=== PATIENT | male | born 1955 | race Caucasian/White ===

== ENCOUNTER 2021-09-25 15:32 | Inpatient (IN) ==
[2021-09-25] MEDS ORDERED: VANCOMYCIN CONSULT ACTIVE PRN (15:52)
[2021-09-25] MEDS ORDERED: VANCOMYCIN HCL 2,500 MG in SODIUM CHLORIDE 0.9% 500 ML IV ONE (15:52)
--- NOTE | 2021-09-25 15:59 | Emergency Department Note ---
History of Present Illness General Chief complaint: Referred by Doctor Stated complaint: INFECTED BOIL ON R LEG Time Seen by Provider: 09/25/21 15:44 Source: patient History of Present Illness Provider complaint: Right thigh pain Onset (ago): week(s) Location: lower extremity and right Radiation: non-radiation Pain Consistency: + constant Maximum Pain Intensity: 8 Quality: + other (Soreness) Relieved By: + none Associated symptoms: + fever/chills and + rash; no chest pain, no cough, no headaches, no nausea/vomiting or no shortness of breath This is a 66-year-old male sent here for admission by his doctor for infection to his right leg. The patient states that approximately 10 days ago the patient developed an abscess to his right inner thigh. He stated that later in the week he was able to pop it open and drain the pus from it. He stated that it got better but then seem to get worse again and so he saw his doctor yesterday who performed I&D in the office with packing and discharged him on Levaquin. He has had 2 doses of Levaquin including 1 dose at 7 AM this morning. He has been taking tramadol for pain. He states that when he went to follow-up with his doctor today the redness seem to be worsening and so he was sent here for admission and IV antibiotics. He complains of pain to the thigh. He describes it as a soreness. It is constant. He rates it an 8 out of 10 in severity. No alleviating factors. He did have a low-grade temperature at the doctor's office of 99.9 and had an episode of chills yesterday. He denies any cough or cold sym ptoms, vomiting, chest pain, shortness of breath, abdominal pain, diarrhea or urinary symptoms. He states that he takes no medications other than the Levaquin and has had no diagnosed medical problems. He has had no prior history of MRSA. Home Medications Medication Instructions Recorded Confirmed Type diphenhydramine 25 2 tab PO HS PRN 09/25/21 09/25/21 History mg-acetaminophen 500 mg tablet (Tylenol PM Extra Strength) levofloxacin 500 mg tablet 500 mg PO DAILY 09/25/21 09/25/21 History tramadol 50 mg tablet 50 mg PO Q8 PRN 09/25/21 09/25/21 History Allergies Allergy/AdvReac Type Severity Reaction Status Date / Time No Known Allergies Allergy Unverified 09/25/21 16:48 Past Med/Surg History Medical History No pertinent past medical history Social History Smoking Status: Former smoker Second Hand Exposure: No; Hx Substance Use: No Preferred Language: Bangladeshi Communication Ability: Effective 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 and A total of 10 systems reviewed and were otherwise negative Physical Exam Vital Signs Vital Signs - 24 hr 09/25/21 15:36 09/25/21 16:45 Temperature 37 C 37.5 C Temperature Source Temporal Artery Scan Oral Pulse Rate 93 H Pulse Rate [Right Radial] 79 Respiratory Rate 16 18 Respiratory Effort / Characteristics Non-Labored Respiratory Depth Normal Blood Pressure [Right Arm] 126/74 Blood Pressure Mean [Right Arm] 91 Blood Pressure Position [Right Arm] Lying Pulse Oximetry 93 94 Oxygen Delivery Method Room Air Room Air Sepsis Recent Fever Within 48 Hours No Sepsis New/Unexplained Change in Mental Status No Sepsis Action Taken by Nursing No Action Required Constitutional: Vital signs reviewed. Eyes: Pupils are equal round reactive to light. Conjunctiva are noninjected. ENT: Pharynx is clear without erythema or exudate. Mucous membranes are moist. Neck supple without meningeal signs. Respiratory: Clear to auscultation bilaterally. Breath sounds are equal bilaterally. Cardiovascular: Regular rate and rhythm. No rubs or gallops. GI: Soft, nondistended and nontender. Bowel sounds are present. Musculoskeletal: Large james sized abscess to the right inner thigh with induration. Small incision noted with milky white purulence. There is no packing visible. Erythema extending past a skin marker line toward the knee. No tenderness to the scrotum or perineum. No crepitus. Integumentary: No cyanosis. or jaundice. Neurological: The patient is awake and alert. No focal deficits. Psychiatric: Normal affect. Not anxious appearing. Course Administered Medications Discontinued Medications Vancomycin HCl 2,500 mg/ (Sodium Chloride) 550 mls @ 200 mls/hr IV NOW ONE Stop: 09/25/21 18:36 Last Admin: 09/25/21 16:44 Dose: 200 mls/hr Documented by: [id number] Piperacillin Sod/Tazobactam Sod (Zosyn) 4.5 gm in 120 mls @ 240 mls/hr IV NOW ONE Stop: 09/25/21 18:44 Last Infusion: 09/25/21 19:26 Dose: 0 mls/hr Documented by: [id number] Admin: 09/25/21 18:38 Dose: 240 mls/hr Documented by: [id number] Medical Decision Making Differential Diagnosis Abscess, cellulitis, outpatient treatment failure, MRSA, myositis, Froylan's gangrene Medical Records Attestation: I reviewed the patient's medical records. I did perform a limited focused review of portions of the patient's old chart on the electronic medical record. The patient has had no prior visits to this hospital. Home Medications Current Medication List: was personally reviewed by me Laboratory Data Attestation: I reviewed the patient's lab results. Result diagrams: 09/25/21 16:01 09/25/21 16:01 Lab Results 09/25/21 09/25/21 09/25/21 Range/Units 16:00 16:01 16:01 WBC 11.78 H (4.8-10.8) K/uL RBC 4.48 L (4.7-6.1) M/uL Hgb 14.6 (14.0-18.0) g/dL Hct 42.5 (42-52) % MCV 94.9 (80-100) fL MCH 32.6 (25-34) pg MCHC 34.4 (32-36) g/dL RDW Std Deviation 47.4 H (36.4-46.3) fL RDW Coeff of Clare 13.7 (11.5-14.5) % Plt Count 194 (130-400) K/uL MPV 9.3 (7.4-10.4) fL Immature Gran % (Auto) 0.3 % Neut % (Auto) 79.7 % Lymph % (Auto) 10.8 % Russell % (Auto) 8.4 % Eos % (Auto) 0.6 % Baso % (Auto) 0.2 % Neut # (Auto) 9.39 H (1.4-6.5) K/uL Lymph # (Auto) 1.27 (1.2-3.4) K/uL Russell # (Auto) 0.99 H (0.11-0.59) K/uL Eos # (Auto) 0.07 (0-0.5) K/uL Baso # (Auto) 0.02 (0-0.2) K/uL Immature Gran # (Auto) 0.04 H (0.00-0.02) K/uL Sodium 134 L (136-145) mmol/L Potassium 3.8 (3.5-5.1) mmol/L Chloride 100 (98-107) mmol/L Carbon Dioxide 25 (21-32) mmol/L Anion Gap 9 (3-11) BUN 18 (6-23) mg/dl Creatinine 1.03 (0.6-1.4) mg/dl Est Cr Clr Drug Dosing 84.2 ml/min Est GFR ( Amer) 86.7 ml/min Est GFR (Non-Af Amer) 74.8 ml/min BUN/Creatinine Ratio 17.5 (10-20) Glucose 102 H (70-99(Fasting)) mg/dl Calcium 9.3 (8.5-10.1) mg/dl Total Bilirubin 0.8 (0.2-1.0) mg/dl AST 12 L (13-39) U/L ALT 14 (7-52) U/L Alkaline Phosphatase 53 (34-104) U/L Total Protein 7.0 (6.0-8.3) gm/dl Albumin 3.9 (3.4-5.0) gm/dl Globulin 3.1 (2.5-4.0) gm/dl Albumin/Globulin Ratio 1.3 (0.9-2) SARS-CoV-2, RNA, NAAT NEGATIVE (NEGATIVE) Imaging Data Radiologist's Impression: Vascular Ultrasound 09/25/21 15:52 US extremity non-vascular ltd HISTORY: 66 years-old Male right thigh eval for abscess patient presents with soft tissue swelling of the right thigh COMPARISON: None TECHNIQUE: Multiple real-time sonographic images of the right thigh soft tissues were obtained assessing grayscale appearance and color flow FINDINGS: Subcutaneous edema with increased echogenicity of the subcutaneous fat. Within the superficial posterior subcutaneous tissues there is a 1.1 x 0.6 x 0.7 cm hypoechoic focus containing central echogenic foci which may represent air v ersus packing material. Within the more anterior subcutaneous tissues there is an irregular hypoechoic subcutaneous focus measuring 1.4 x 0.4 x 1.6 cm. IMPRESSION: Cellulitis with two tiny collections within the subcutaneous tissues of the thigh as above measuring up to 1.4 cm suggestive of phlegmon/developing abscesses. No intramuscular collections are identified. ACT 112: Negative or not required by law. The above report was generated using voice recognition software. It may contain grammatical, syntax or spelling errors. Electronically signed by: Jimmy Thakkar M.D. 09/25/2021 4:55 PM MDM Narrative I did evaluate the patient as noted above. He is presenting with worsening cellulitis and abscess to the right thigh. He was treated with Levaquin by his primary care physician. IV access was established. Blood cultures were obtained. I did treat him with IV vancomycin. I did order a urine analysis. I did order and review the patient's blood work as noted in the electronic medical record. His white blood cell count is elevated at 11.7. He is not anemic. CMP is unremarkable other than a sodium of 134 and AST of 12. I did order an ultr asound of the left leg s. I did review the images myself as well as the radiology report as described above. He has cellulitis as well as 2 small abscesses. There appears to be packing material within one of the abscesses. I did discuss the test results with the patient. He will be hospitalized for further care and evaluation. I did discuss the case with the hospitalist service and the case resource manager. They will consult general surgery. Impression & Plan Cellulitis and abscess of right lower extremity Discharge Plan Visit Data Chief Complaint: Referred by Doctor Stated Complaint: INFECTED BOIL ON R LEG ED Provider: Rodolfo Moore Discharge Problem: Cellulitis and abscess of right lower extremity Patient Disposition: Admitted As Inpatient Discharge Instructions Interventions: ED Discharge Assessment Last Done: 09/25/21 19:43
[2021-09-25 16:22] LABS: Basophils # (auto) 0.02 K/uL (0-0.2); Basophils % (auto) 0.2 %; Eosinophils # (auto) 0.07 K/uL (0-0.5); Eosinophils % (auto) 0.6 %; Hematocrit (blood only) 42.5 % (42-52); Hemoglobin 14.6 g/dL (14.0-18.0); Immature Granulocytes # (auto) 0.04 K/uL (0.00-0.02); Immature Granulocytes % (auto) 0.3 %; Lymphocytes # (auto) 1.27 K/uL (1.2-3.4); Lymphocytes % (auto) 10.8 %; Mean Corpuscular Hemoglobin 32.6 pg (25-34); Mean Corpuscular Hgb Conc 34.4 g/dL (32-36); Mean Corpuscular Volume 94.9 fL (80-100); Mean Platelet Volume 9.3 fL (7.4-10.4); Monocytes # (auto) 0.99 K/uL (0.11-0.59); Monocytes % (auto) 8.4 %; Neutrophils # (auto) 9.39 K/uL (1.4-6.5); Neutrophils % (auto) 79.7 %; Platelet Count 194 K/uL (130-400); RDW Coefficient of Variation 13.7 % (11.5-14.5); RDW Standard Deviation 47.4 fL (36.4-46.3); Red Blood Count 4.48 M/uL (4.7-6.1); White Blood Count 11.78 K/uL (4.8-10.8)
[2021-09-25 16:37] LABS: Albumin Globulin Ratio 1.3 (0.9-2); Albumin Level 3.9 gm/dl (3.4-5.0); BUN Creatinine Ratio 17.5 (10-20); Bilirubin,Total 0.8 mg/dl (0.2-1.0); Calcium 9.3 mg/dl (8.5-10.1); Creatinine Clr Calc Pharmacy 84.2 ml/min; Est GFR (African American) 86.7 ml/min; Est GFR (Non-African American) 74.8 ml/min; Globulin 3.1 gm/dl (2.5-4.0); Potassium 3.8 mmol/L (3.5-5.1)
--- NOTE | 2021-09-25 16:56 | Ultrasound Report ---
US extremity non-vascular ltd HISTORY: 66 years-old Male right thigh eval for abscess patient presents with soft tissue swelling o f the right thigh COMPARISON: None TECHNIQUE: Multiple real-time sonographic images of the right thigh soft tissues were obtained assess ing grayscale appearance and color flow FINDINGS: Subcutaneous edema with increased echogenicity of the subcutaneous fat. Within the superficial wheel grinder ior subcutaneous tissues there is a 1.1 x 0.6 x 0.7 cm hypoechoic focus containing central echogenic foci which may represent air versus packing material. Within the more anterior subcutaneous tissues t here is an irregular hypoechoic subcutaneous focus measuring 1.4 x 0.4 x 1.6 cm. IMPRESSION: Cellulitis with two tiny collections within the subcutaneous tissues of the thigh as abov e measuring up to 1.4 cm suggestive of phlegmon/developing abscesses. No intramuscular collections ar e identified. ACT 112: Negative or not required by law. The above report was generated using voice recognition software. It may contain grammatical, syntax o r spelling errors. Electronically signed by: Jimmy Thakkar M.D. 09/25/2021 4:55 PM
[2021-09-25] MEDS ORDERED: ACETAMINOPHEN 325 MG TAB PO PRN (17:57)
[2021-09-25] MEDS ORDERED: PIPERACILLIN/TAZOBACTAM 4.5 GM in DEXTROSE 5% 100 ML IV ONE (17:59)
[2021-09-25] MEDS ORDERED: PIPERACILL/TAZOBAC CONSULT ACTIVE PRN (17:59)
--- NOTE | 2021-09-25 18:00 | History & Physical Report ---
Date of Service September 25, 2021 Assessment & Plan (1) Soft tissue abscess: (2) Cellulitis: Plan: 66-year-old male without significant past medical history admitted for cellulitis and developing abscess in the right upper thigh/groin. Cellulitis/abscess: Presents with a total of 10 days of erythema and tenderness in the right upper thigh/groin area. Evaluated by PCP office yesterday and had packing inserted into the wound after expressing purulent material. He was also placed on Levaquin at that time. In the ER due to continued worsening of redness past the line demarcated by PCP office yesterday. Right upper thigh ultrasound reveals 2 small developing abscesses as well as cellulitis. No evidence of necrotizing fasciitis. Blood cultures were collected and patient was ordered vancomycin. We will further extend coverage and add Zosyn. Wound culture was also collected. Patient already had 1 wound culture collected by PCP office; will try to obtain records. General surgery consulted for incision and drainage, removal of packing this evening. Case discussed with Dr. Mendoza. N.p.o. for now in the event of impending procedure. CODE STATUS: Full code FEN: N.p.o. DVT prophylaxis: SCDs; consider chemoprophylaxis after incision and drainage based on length of stay Dispo: Med/Surg History of Present Illness Chief Complaint: Cellulitis Primary Care Provider: Jacques Conway DO 66-year-old male no significant past medical history presents for about 10 days of right medial thigh swelling and pain. He reports that late last week there was a "head" on a swollen area in his upper right groin which popped on its own, after which he expressed purulent material and washed the area with soap and water. The area was improving until yesterday when he noticed that the right medial thigh was even more swollen than previous. He was seen by his PCP office who "lanced" the area and placed an unknown amount of packing within. He was placed on Levaquin by that same provider. He was seen in that office today for follow-up and the area was becoming even more red and swollen and as such he was sent to the ER for evaluation and IV antibiotics. In the ER today patient's WBC count is 11.78 with left shift, lab work otherwise normal. Right upper thigh ultrasound was performed which showed two small fluid collections consistent with developing abscesses. There was no evidence of intramuscular collections or gas collection. Allergies Allergy/AdvReac Type Severity Reaction Status Date / Time No Known Allergies Allergy Unverified 09/25/21 16:48 Home Medications Medication Instructions Recorded Confirmed Type diphenhydramine 25 2 tab PO HS PRN 09/25/21 09/25/21 History mg-acetaminophen 500 mg tablet (Tylenol PM Extra Strength) levofloxacin 500 mg tablet 500 mg PO DAILY 09/25/21 09/25/21 History tramadol 50 mg tablet 50 mg PO Q8 PRN 09/25/21 09/25/21 History Past Med/Surg History Medical History No pertinent past medical history Social History Smoking Status: Former smoker Second Hand Exposure: No; Hx Substance Use: No Preferred Language: Puerto Rican Communication Ability: Effective Blurb Writer Required: No Beliefs That Will Affect Care: None Current Living Situation: Spouse Feels Safe at Home: Yes Assistive Devices: Glasses Review of Systems Review of Systems: All systems reviewed & are unremarkable except as noted in HPI & below Constitutional: + chills; no fever and no malaise Respiratory: no cough and no dyspnea Cardiovascular: no chest pain, no palpitations and no edema Gastrointestinal: no abdominal pain, no constipation and no diarrhea/loose stools Integumentary: + erythema and + skin swelling Worsening redness in right medial thigh/groin area Physical Exam Constitutional: WD/WN, vitals as above Eyes: PERRL, conjunctivae normal, anicteric sclerae ENMT: external ear and nose normal, oropharynx normal Neck: normal visual inspection Respiratory: normal respiratory effort, lungs clear to auscultation Cardiovascular: RRR, no murmur, no edema Gastrointestinal (Abdomen): normal bowel sounds, soft, nontender, no hepatosplenomegaly Musculoskeletal: no cyanosis or clubbing, extremities motor strength 5/5 Skin: Surgical marking pen used to saturnino erythematous area on right upper thigh/right groin. Notable for area of redness/erythema that extends from above the right medial knee to the area of the right groin. Firm area of induration without crepitus noted at the area where the right thigh meets the groin. Area is tender to palpation and on palpation some milky yellow purulent material is expressed Neurologic: AAOx3, normal speech. PERRLA, EOMI, no nystagmus. Normal visual acuity bilaterally. Bilateral UE, LE, and face without sensory or motor deficits. DTRs normal. II- XII intact bilaterally. No pronator drift. No tremor. No ataxia. Psychiatric: A+Ox3, euthymic affect Results & Data Results & Data ([facility]) Vital Signs (Past 12 Hours) Vital Signs Temp Pulse Pulse Resp BP Pulse Ox 09/25/21 16:45 37.5 C 79 18 126/74 94 09/25/21 15:36 37 C 93 H 16 93 Code Status & VTE Plan VTE Prophylaxis Plan VTE Prophylaxis will be ordered: Yes Supervising Physician Co-Signing Physician Notes I personally saw and examined the patient. I verified all cross points and agree with resident physician Dr Joyce Peacock, DO with the following exceptions and/or additions: 66 year old male with right groin abscess and cellulitis. Drained in the office yesterday by PCP and packing placed per patient. Likely wound culture sent to [facility]. Patient placed on Levaquin. Much worse today with spreading erythema. O/E Afebrile, A&Ox3, Chest CTAB, HS1+2, no murmurs. Erythema from groin to just above right knee on anterior thigh with fluctuance, no definitive incision A/P Cellulitis and abscess - concerning for MRSA although no history of this. Will need to follow up wound culture suspect sent to [facility] but unable to confirm at time of admission. Vancomycin and Zosyn pending blood and wound cultures here. Consult surgery for incision and drainage and concerning history for packing still in the wound. Resident Activity Tracking Resident Involvement: Resident Care Provided Care Provided: Adult Hospital Medicine
[2021-09-25] MEDS ORDERED: PIPERACILLIN/TAZOBACTAM 4.5 GM/120 ML BAG IV ONE (18:15)
--- NOTE | 2021-09-25 19:40 | Surgery Consultation ---
Date of Consultation September 25, 2021 Assessment & Plan (1) Soft tissue abscess: I believe this should be incised and drained preferably this evening. Risk of sepsis. Will evaluate whether or not there is foreign body from prior packing. Discussed the risks which include bleeding, worsening infection, injury to another structure, DVT, PE, DE, CVA etc. Following our discussion I answered his questions. We will need anesthesia. After I talked to them we will plan incision and drainage this evening. Patient agreeable to the plan. History of Present Illness History of Present Illness 66-year-old male who noted some swelling and redness of his right upper thigh over the weekend. One of the lesions initially popped and he was feeling better however he developed the second site nearby which progressed. He saw his PCP yesterday who performed an incision and drainage and placed packing. On his follow-up checkup today the physician felt that the infection was getting worse and referred him to the emergency room. Ultrasound shows abscess and phlegmon and questionable foreign body in the wound itself. He has a leukocytosis of 11,000. Allergies Allergy/AdvReac Type Severity Reaction Status Date / Time No Known Allergies Allergy Unverified 09/25/21 16:48 Home Medications Medication Instructions Recorded Confirmed Type diphenhydramine 25 2 tab PO HS PRN 09/25/21 09/25/21 History mg-acetaminophen 500 mg tablet (Tylenol PM Extra Strength) levofloxacin 500 mg tablet 500 mg PO DAILY 09/25/21 09/25/21 History tramadol 50 mg tablet 50 mg PO Q8 PRN 09/25/21 09/25/21 History Patient History Medical History No pertinent past medical history Social History Smoking Status: Former smoker Feels Safe at Home: Yes Review of Systems Review of Systems: All systems reviewed & are unremarkable except as noted in HPI & below Physical Exam Constitutional: WD/WN, vitals as above no acute distress and not ill appearing Eyes: PERRL, conjunctivae normal, anicteric sclerae EOM intact bilaterally ENMT: external ear and nose normal, oropharynx normal Ears: no hearing impairment Neck: trachea midline, no thyromegaly Respiratory: normal respiratory effort; no respiratory distress and does not use accessory muscles Cardiovascular: Rate/Rhythm: regular rate and regular rhythm Gastrointestinal (Abdomen): normal bowel sounds, soft, nontender, no hepatosplenomegaly Skin: Large area of erythema and swelling in the right upper thigh. There appears to be some fluctuance. I am unable to identify the actual incision from yesterday. Unclear whether or not there is foreign body within the prior wound bed. Exquisitely tender to touch. Positive blanching. Psychiatric: Orientation: alert, oriented x 3 and cooperative Results & Data ([facility]) Vital Signs (Past 12 Hours) Vital Signs Temp Pulse Pulse Resp BP Pulse Ox 09/25/21 18:36 80 16 123/61 94 09/25/21 16:45 37.5 C 79 18 126/74 94 09/25/21 15:36 37 C 93 H 16 93 PG Care Time/CCT Total # of Minutes Spent Total Time Spent with Patient: Total time spent is greater than 50% in coordination of care (as documented) at patient's floor/unit and/or counseling patient: Coding Level of Care Code 34084 Inpt Consult Level 3 Diagnoses Soft tissue abscess L02.91
[2021-09-25] MEDS ORDERED: ACETAMINOPHEN 500 MG TAB PO PRN (20:08)
[2021-09-25] MEDS ORDERED: diphenhydrAMINE Capsule 25 MG CAP PO PRN (20:09)
--- NOTE | 2021-09-25 20:12 | Pharmacy Report ---
Pharmacy Vanc AUC Short Note - Date of Service September 25, 2021 - Assessment & Plan Assessment 66 year old M receiving VANCOMYCIN/ZOSYN for treatment of GROIN INFECTION. Pertinent microbiologic data includes: N/A. Day # 1 of antimicrobial therapy. Plan Vancomycin * AUC/LOIDA is the preferred PK/PD target for vancomycin * AUC guided dosing is effective and associated with decreased risk of nephrotoxicity compared to traditional trough targets * VANCOMYCIN 1250 MG IV Q12 is predicted to achieve target AUC/LOIDA of 400-600 mg/L.hr and may be associated with a 19 % risk of nephrotoxicity Pharmacy will continue to follow and will adjust dose/frequency as necessary. Anitha ferrara.
--- NOTE | 2021-09-25 20:54 | Anesthesiology Consultation ---
Date of Service September 25, 2021 Assessment & Plan (1) Encounter for pre-operative examination: Chart Review Chart Review: medical data entry clerk initiated History Surgery Operation Date: 09/25/21 22:00 Proposed Procedures p Incision and Drainage Right Thigh Abscess(Right) - Hammad Mendoza DO Height/Weight Height: 5 ft 10 in Weight: 113.5 kg Allergies Allergy/AdvReac Type Severity Reaction Status Date / Time No Known Allergies Allergy Unverified 09/25/21 16:48 Medications Home Medications Medication Instructions Recorded Confirmed Last Taken diphenhydramine 25 2 tab PO HS PRN 09/25/21 09/25/21 Unknown mg-acetaminophen 500 mg tablet (Tylenol PM Extra Strength) levofloxacin 500 mg tablet 500 mg PO DAILY 09/25/21 09/25/21 09/25/21 07:00 tramadol 50 mg tablet 50 mg PO Q8 PRN 09/25/21 09/25/21 Unknown Past Medical History Medical History No pertinent past medical history Social History Smoking Status: Former smoker tobacco type: cigarettes Do You Dip or Chew Tobacco: No Smoking End Date: 45 years ago Alcohol type: beer, wine and hard liquor alcohol intake frequency: a few times a week Hx Substance Use: No Physical Exam Vital Signs Last Vital Signs Temp 99.7 F H 09/25/21 19:45 Pulse 86 09/25/21 19:45 Resp 18 09/25/21 19:45 BP 161/78 H 09/25/21 19:45 Pulse Ox 93 09/25/21 19:45 Testing Laboratory Results 09/25/21 16:01 09/25/21 16:01
[2021-09-25] MEDS ORDERED: MIDAZOLAM HCL 1 MG/ML 2ML VIAL ONE (21:59)
[2021-09-25] MEDS ORDERED: KETAMINE 50 MG/5 ML SYRINGE ONE (21:59)
[2021-09-25] MEDS ORDERED: fentaNYL citrate 100 MCG/2 ML VIAL ONE ×2 (21:59→22:37)
[2021-09-25] MEDS ORDERED: BUPIVACAINE 0.5 % 5 MG/1 ML MPF 30ML VIAL ONE (22:05)
[2021-09-25] MEDS ORDERED: EPINEPHrine INJ 1 MG/ML AMP ONE (22:05)
[2021-09-25] MEDS ORDERED: ATROPINE SULFATE 0.1 MG/ML 10ML SYR IV PRN (22:15)
[2021-09-25] MEDS ORDERED: fentaNYL citrate 100 MCG/2 ML VIAL IV PRN (22:15)
[2021-09-25] MEDS ORDERED: ePHEDrine sulfate 50 MG/ML AMP IV PRN (22:15)
[2021-09-25] MEDS ORDERED: ONDANSETRON INJ 2 MG/ML 2 ML VIAL IV PRN (22:15)
[2021-09-25] MEDS ORDERED: PROPOFOL IV EMULSION 10 MG/ML 20 ML VIAL IV ONE (22:36)
--- NOTE | 2021-09-25 23:04 | Operative Report ---
PG Post Operative Report Pre & Post Diagnosis Operation Date: 09/25/21 22:00 Pre-Op Diagnosis: RIGHT GROIN CELLULITIS / ABSCESS Post-Op Diagnosis: RIGHT GROIN CELLULITIS / ABSCESS I identified the patient and participated in the time-out.: Yes Procedure Operation Date: 09/25/21 22:00 Actual Procedures p Incision and Drainage Right Thigh Abscess(Right) - Hammad Mendoza DO Surgeon Hammad Mendoza DO Case Fitter li Rivera Estimated Blood Loss 5 Findings Consistent with Post-Op Diagnosis Specimens wound cx/gram stain Description of Procedure After informed consent was obtained the patient was taken to the operating room and placed in supine position. IV sedation was administered by anesthesia and titrated to effect. After adequate sedation the right upper leg was sterilely prepped and draped in usual fashion. About 10 cc of Marcaine with epinephrine was injected directly over the palpable area of abscess/cellulitis. An 11 blade scalpel was then used to make a horizontal incision several inches long through the bulbous area of the inflammation. I carried this down through soft tissue and then used finger fractionation. I was able to insert my fingers for several inches in all directions to break up the inflamed tissue. There was a cavity however there was minimal purulent fluid. We did obtain some fluid to send for gram stain culture and sensitivity. I was unable to see the area of prior incision and drainage. We did explore the entire region and found no evidence of any foreign body or packing however again it was impossible to tell where the actual incision and drainage took place. The cavity was then thoroughly irrigated. Half-inch iodoform packing was placed followed by gauze and ABD and Margarita wrap. The patient tolerated the procedure well. My physician assistant golf coach was present for the entire case and was instrumental in helping to prep the patient exposure during my drainage procedure as well as assisting with wound care at the end of the case. I attest to the content of the Intraoperative Record and any orders documented therein. Any exceptions are noted below.
--- NOTE | 2021-09-25 23:12 | Anesthesiology Progress Note ---
Date of Service September 25, 2021 Anesthesia Post Procedure Vital Signs Vital Signs: Temp Pulse Pulse Resp BP BP Pulse Ox 09/25/21 23:09 97.9 F 09/25/21 23:06 75 18 93 09/25/21 23:05 131/72 09/25/21 19:45 99.7 F H 86 18 161/78 H 93 09/25/21 18:36 80 16 123/61 94 09/25/21 16:45 99.5 F 79 18 126/74 94 09/25/21 15:36 98.6 F 93 H 16 93 Pain Intensity Right Groin: Pain Intensity: 7 Transfer of Care Handoff Completed per policy Notes Mental Status: alert / awake / arousable and participated in evaluation Patient Amnestic to Procedure: Yes Nausea / Vomiting: adequately controlled Pain: adequately controlled Airway Patency, RR, SpO2: stable & adequate BP & HR: stable & adequate Hydration State: stable & adequate Anesthetic Complications: no major complications apparent and Pt Satisfied with anesthetic care
[2021-09-26] MEDS ORDERED: ONDANSETRON INJ 2 MG/ML 2 ML VIAL IV PRN (00:06)
[2021-09-26] MEDS ORDERED: ACETAMINOPHEN 1,000 MG/100 ML VIAL IV PRN (00:06)
[2021-09-26] MEDS: PIPERACILLIN/TAZOBACTAM 3.375 GM in DEXTROSE 5% 100 ML IV SCH ×2 (00:37→08:12)
[2021-09-26] MEDS: traMADol HCL 50 MG TABLET PO PRN ×3 (00:45→22:15)
[2021-09-26] MEDS: VANCOMYCIN HCL 1,250 MG in SODIUM CHLORIDE 0.9% 250 ML IV SCH ×2 (04:15→16:04)
[2021-09-26 06:41] LABS: Basophils # (auto) 0.02 K/uL (0-0.2); Basophils % (auto) 0.2 %; Eosinophils # (auto) 0.29 K/uL (0-0.5); Eosinophils % (auto) 3.4 %; Hematocrit (blood only) 38.3 % (42-52); Hemoglobin 12.8 g/dL (14.0-18.0); Immature Granulocytes # (auto) 0.04 K/uL (0.00-0.02); Immature Granulocytes % (auto) 0.5 %; Lymphocytes % (auto) 16.2 %; Mean Corpuscular Hemoglobin 31.6 pg (25-34); Mean Corpuscular Volume 94.6 fL (80-100); Mean Platelet Volume 9.1 fL (7.4-10.4); Monocytes # (auto) 0.89 K/uL (0.11-0.59); Monocytes % (auto) 10.3 %; Neutrophils % (auto) 69.4 %; Platelet Count 166 K/uL (130-400); RDW Coefficient of Variation 13.7 % (11.5-14.5); RDW Standard Deviation 47.6 fL (36.4-46.3); Red Blood Count 4.05 M/uL (4.7-6.1); White Blood Count 8.64 K/uL (4.8-10.8)
[2021-09-26 06:42] LABS: Mean Corpuscular Hgb Conc 33.4 g/dL (32-36)
[2021-09-26 07:02] LABS: BUN Creatinine Ratio 16.7 (10-20); Calcium 8.7 mg/dl (8.5-10.1); Creatinine Clr Calc Pharmacy 107.7 ml/min; Est GFR (Non-African American) 90.6 ml/min; Potassium 3.4 mmol/L (3.5-5.1)
--- NOTE | 2021-09-26 08:34 | Hospitalist Progress Note ---
Date of Service September 26, 2021 Assessment & Plan (1) Cellulitis: Plan: 66-year-old male without significant past medical history admitted for cellulitis and developing abscess in the right upper thigh/groin. Presents with a total of 10 days of erythema and tenderness in the right upper thigh/groin area. Evaluated by PCP office yesterday and had packing inserted into the wound after expressing purulent material and placed on Levaquin at that time (took 2 doses) --> worsened in re-check (AND ADDITIONAL BOIL NOTED) and sent to ER for concerns worsening infection. On admission, obtained R Thigh U/S w/ 2 small developing abscesses as well as associated cellulitis no evidence for nec fasc Wound cx obtained on admit but was surface cx-- monitor General surgery consulted s/p I&D with Dr Mendoza evening 09/25 Monitor culture from OR Wound RN consulted Remains on Vanco/Zosyn for now --> will d/c Zosyn given no risk factors for pseudomonas WBC 11.7--> 8.6k. Afebrile Pain control, antiemetics as needed (controlled with tramadol, which could be contibuting to hypona) (2) Soft tissue abscess: Plan: s/p I&D with Dr Mendoza. Monitor cx Abx as outlined (3) Hypokalemia: Plan: K 3.4, ordered 20meq x 1 now Mag checked -- wnl Monitor BMP in AM (4) Hyponatremia: Plan: Na 134 on admission, improved to 135 on repeat but did not get any IVF Also on tramadol which could be contributing Asymptomatic with low value, but could check TSH but given acute infection likely to be elevated and likely 2nd to medication use as this is a home medication No reported issues with constipation/lethargy/pre-tibial edema/etc to suspect issue at this time Monitor BMP in AM Plan: Added SCDs for DVT Prophylaxis Changed to full admission Admission and Anticipated Discharge Date Admission Date: September 25, 2021 Supervising Physician Co-Signing Physician Notes JALEN Supervision Note: I did not personally see or examine the patient today, but I verified all cross points of JALEN Fung's assessment and plan with the following exceptions/additions: None Subjective Patient evaluated this morning. Doing well, pain much improved. Controlled with ordered medications. Had a separate boil appear and this was the source of the repeated issue, not with the initial area that popped previously. No further fever/chills, no chest pain or shortness of breath, no abdominal pain, nausea or vomiting. States gets routine labs every year or two with PCP. No hx DM, no history of elevated lipids as he states these have been checked. Has had Uptodate screening exams including c-scope in the past. No history of smoking/chewing tobacco. Occasional alcohol use couple times week 1-2 beers. Discussed de-escalation to Vancomycin for now. No hx MRSA. Monitoring cultures. He is inquiring about timing for culture data -- reviewed. Review of Systems Review of Systems: All systems reviewed & are unremarkable except as noted in HPI & below Physical Exam Physical Exam: General: WN/WD male sitting up in hospital bed, NAD HEENT; head normocephalic, atraumatic, eye glasses in place, pupils equal and reactive, trachea midline without deviation Resp: CTAB, no w/c/r, on room air CV: RRR, no m/r/g, calves non-tender, cap refill wnl GI: +BS, non-tender : no caro MSK/Neuro: RLE -- UPPER THIGH/GROIN with dressing in place, serosanginous drainage on bandage. Incision open to air (approximately 5-6cm in length), no expressible drainage. Indurated. Tender to palpation more proximal to groin. Markings noted -- erythema within markings to lateral aspect however some extension to medial thigh (asked RN to remark for monitoring) answering questions appropriately, no facial droop/slurred speech. CN intact grossly Psych: AOX3, pleasant and cooperative Skin: see above, otherwise warm, dry Results & Data Results & Data ([facility]) Vital Signs (Past 12 Hours) Vital Signs Temp Pulse Pulse Resp BP BP Pulse Ox 09/26/21 07:44 37.1 C 67 18 118/72 94 09/26/21 03:05 36.7 C 70 16 131/75 96 09/26/21 02:05 36.8 C 69 16 135/79 96 09/26/21 01:05 37.0 C 66 18 121/74 95 09/26/21 00:35 36.7 C 66 16 118/73 95 09/26/21 00:05 37.2 C 70 16 134/78 96 09/25/21 23:55 69 20 116/62 94 09/25/21 23:50 70 21 93 09/25/21 23:45 67 19 115/69 94 09/25/21 23:40 69 20 111/67 93 09/25/21 23:35 68 20 113/64 94 09/25/21 23:30 69 21 117/66 92 09/25/21 23:25 36.5 C 74 16 127/72 94 09/25/21 23:20 73 18 111/80 94 09/25/21 23:15 75 14 121/69 94 09/25/21 23:10 76 18 126/62 94 09/25/21 23:09 36.6 C 09/25/21 23:06 75 18 93 09/25/21 23:05 131/72 Laboratory Results 09/26/21 09/26/21 09/25/21 Range/Units 06:07 06:07 16:01 WBC 8.64 11.78 H (4.8-10.8) K/uL RBC 4.05 L 4.48 L (4.7-6.1) M/uL Hgb 12.8 L 14.6 (14.0-18.0) g/dL Hct 38.3 L 42.5 (42-52) % MCV 94.6 94.9 (80-100) fL MCH 31.6 32.6 (25-34) pg MCHC 33.4 34.4 (32-36) g/dL RDW Std Deviation 47.6 H 47.4 H (36.4-46.3) fL RDW Coeff of [place] 13.7 13.7 (11.5-14.5) % Plt Count 166 194 (130-400) K/uL MPV 9.1 9.3 (7.4-10.4) fL Immature Gran % (Auto) 0.5 0.3 % Neut % (Auto) 69.4 79.7 % Lymph % (Auto) 16.2 10.8 % [place] % (Auto) 10.3 8.4 % Eos % (Auto) 3.4 0.6 % Baso % (Auto) 0.2 0.2 % Neut # (Auto) 6.00 9.39 H (1.4-6.5) K/uL Lymph # (Auto) 1.40 1.27 (1.2-3.4) K/uL [place] # (Auto) 0.89 H 0.99 H (0.11-0.59) K/uL Eos # (Auto) 0.29 0.07 (0-0.5) K/uL Baso # (Auto) 0.02 0.02 (0-0.2) K/uL Immature Gran # (Auto) 0.04 H 0.04 H (0.00-0.02) K/uL Sodium 135 L (136-145) mmol/L Potassium 3.4 L (3.5-5.1) mmol/L Chloride 103 (98-107) mmol/L Carbon Dioxide 23 (21-32) mmol/L Anion Gap 9 (3-11) BUN 14 (6-23) mg/dl Creatinine 0.84 (0.6-1.4) mg/dl Est Cr Clr Drug Dosing 107.7 ml/min Est GFR ( Amer) 105.0 ml/min Est GFR (Non-Af Amer) 90.6 ml/min BUN/Creatinine Ratio 16.7 (10-20) Glucose 97 (70-99(Fasting)) mg/dl Calcium 8.7 (8.5-10.1) mg/dl Total Bilirubin (0.2-1.0) mg/dl AST (13-39) U/L ALT (7-52) U/L Alkaline Phosphatase (34-104) U/L Total Protein (6.0-8.3) gm/dl Albumin (3.4-5.0) gm/dl Globulin (2.5-4.0) gm/dl Albumin/Globulin Ratio (0.9-2) SARS-CoV-2, RNA, NAAT (NEGATIVE) 09/25/21 09/25/21 Range/Units 16:01 16:00 WBC (4.8-10.8) K/uL RBC (4.7-6.1) M/uL Hgb (14.0-18.0) g/dL Hct (42-52) % MCV (80-100) fL MCH (25-34) pg MCHC (32-36) g/dL RDW Std Deviation (36.4-46.3) fL RDW Coeff of Clare (11.5-14.5) % Plt Count (130-400) K/uL MPV (7.4-10.4) fL Immature Gran % (Auto) % Neut % (Auto) % Lymph % (Auto) % [place] % (Auto) % Eos % (Auto) % Baso % (Auto) % Neut # (Auto) (1.4-6.5) K/uL Lymph # (Auto) (1.2-3.4) K/uL [place] # (Auto) (0.11-0.59) K/uL Eos # (Auto) (0-0.5) K/uL Baso # (Auto) (0-0.2) K/uL Immature Gran # (Auto) (0.00-0.02) K/uL Sodium 134 L (136-145) mmol/L Potassium 3.8 (3.5-5.1) mmol/L Chloride 100 (98-107) mmol/L Carbon Dioxide 25 (21-32) mmol/L Anion Gap 9 (3-11) BUN 18 (6-23) mg/dl Creatinine 1.03 (0.6-1.4) mg/dl Est Cr Clr Drug Dosing 84.2 ml/min Est GFR ( Amer) 86.7 ml/min Est GFR (Non-Af Amer) 74.8 ml/min BUN/Creatinine Ratio 17.5 (10-20) Glucose 102 H (70-99(Fasting)) mg/dl Calcium 9.3 (8.5-10.1) mg/dl Total Bilirubin 0.8 (0.2-1.0) mg/dl AST 12 L (13-39) U/L ALT 14 (7-52) U/L Alkaline Phosphatase 53 (34-104) U/L Total Protein 7.0 (6.0-8.3) gm/dl Albumin 3.9 (3.4-5.0) gm/dl Globulin 3.1 (2.5-4.0) gm/dl Albumin/Globulin Ratio 1.3 (0.9-2) SARS-CoV-2, RNA, NAAT NEGATIVE (NEGATIVE) Diagnostic Findings Vascular Ultrasound 09/25/21 15:52 US extremity non-vascular ltd HISTORY: 66 years-old Male right thigh eval for abscess patient presents with soft tissue swelling of the right thigh COMPARISON: None TECHNIQUE: Multiple real-time sonographic images of the right thigh soft tissues were obtained assessing grayscale appearance and color flow FINDINGS: Subcutaneous edema with increased echogenicity of the subcutaneous fat. Within the superficial posterior subcutaneous tissues there is a 1.1 x 0.6 x 0.7 cm hypoechoic focus containing central echogenic foci which may represent air versus packing material. Within the more anterior subcutaneous tissues there is an irregular hypoechoic subcutaneous focus measuring 1.4 x 0.4 x 1.6 cm. IMPRESSION: Cellulitis with two tiny collections within the subcutaneous tissues of the thigh as above measuring up to 1.4 cm suggestive of phlegmon/developing abscesses. No intramuscular collections are identified. ACT 112: Negative or not required by law. The above report was generated using voice recognition software. It may contain grammatical, syntax or spelling errors. Electronically signed by: Jimmy Thakkar M.D. 09/25/2021 4:55 PM PG Care Time/CCT Total # of Minutes Spent Total Time Spent with Patient: Total time spent is greater than 50% in coordination of care (as documented) at patient's floor/unit and/or counseling patient: Coding Level of Care Code 17987 Subseq Hosp Care Lvl 3 Diagnoses Soft tissue abscess L02.91 Cellulitis L03.90 Hypokalemia E87.6 Hyponatremia E87.1
--- NOTE | 2021-09-26 10:12 | Billing Data ---
Date of Service September 25, 2021 Coding Level of Care Code 71869 Initial Inpt Care Lvl 2
[2021-09-26] MEDS ORDERED: POTASSIUM CHLORIDE CRTAB 20 MEQ TABCR PO STA (10:49)
--- NOTE | 2021-09-26 11:04 | Surgery Progress Note ---
Date of Service September 26, 2021 Assessment & Plan (1) Soft tissue abscess: Plan: Clinically improving. White blood cell count is improved as well. Wound nurses consulted for packing changes. Continue IV antibiotics (2) Cellulitis: Admission and Anticipated Discharge Date Admission Date: September 25, 2021 Subjective Patient states that he is pretty sore however he is feeling better than yesterday. No new complaints. Physical Exam Physical Exam: Alert and oriented no acute distress The incision looks good. Packing in place. The erythema is much improved from yesterday. Results & Data ([facility]) Vital Signs (Past 12 Hours) Vital Signs Temp Pulse Pulse Resp BP BP Pulse Ox 09/26/21 07:44 37.1 C 67 18 118/72 94 09/26/21 03:05 36.7 C 70 16 131/75 96 09/26/21 02:05 36.8 C 69 16 135/79 96 09/26/21 01:05 37.0 C 66 18 121/74 95 09/26/21 00:35 36.7 C 66 16 118/73 95 09/26/21 00:05 37.2 C 70 16 134/78 96 09/25/21 23:55 69 20 116/62 94 09/25/21 23:50 70 21 93 09/25/21 23:45 67 19 115/69 94 09/25/21 23:40 69 20 111/67 93 09/25/21 23:35 68 20 113/64 94 09/25/21 23:30 69 21 117/66 92 09/25/21 23:25 36.5 C 74 16 127/72 94 09/25/21 23:20 73 18 111/80 94 09/25/21 23:15 75 14 121/69 94 09/25/21 23:10 76 18 126/62 94 09/25/21 23:09 36.6 C 09/25/21 23:06 75 18 93 09/25/21 23:05 131/72 PG Care Time/CCT Total # of Minutes Spent Total Time Spent with Patient: Total time spent is greater than 50% in coordination of care (as documented) at patient's floor/unit and/or counseling patient: Coding Level of Care Code None Diagnoses Soft tissue abscess L02.91 Cellulitis L03.90
[2021-09-26] MEDS: MoRPHine SULFATE 4 MG/ML 1 ML CARP\\VIAL IV PRN (16:17)
[2021-09-26] MEDS ORDERED: PIPERACILL/TAZOBAC CONSULT ACTIVE PRN (20:12)
[2021-09-26] MEDS ORDERED: PIPERACILLIN/TAZOBACTAM 4.5 GM in DEXTROSE 5% 100 ML IV ONE (20:15)
--- NOTE | 2021-09-26 23:45 | Communication Note ---
Date of Service: September 26, 2021 I received signout from [facility] surgical team the patient was having reported extension of cellulitis from his surgical site. The nursing staff had drawn a line demarcating the area of cellulitis and the initial line drawn showed some extension of cellulitis. A second line was drawn and the cellulitis did not appear to extend beyond this point. I visited with the patient at bedside and he notes that he feels well and he is afebrile with stable vital signs. I examined the patient's leg and he did have cellulitis extending from his surgical incision. There is no crepitus noted in the soft tissue and not appreciate any purulent drainage. As noted there to lines marking the extension of the cellulitis and the cellulitis has not extended past the second line. It is nowhere the mention that postoperatively patient was initially receiving vancomycin and Zosyn. The patient's Zosyn was discontinued earlier today. I did discuss with the occupational therapy assist hospitalist concerns for his extending cellulitis. We did review the cultures and the cultures from the operating room are pending and there are no organisms noted on gram stain. The occupational therapy assist hospitalist is indicated that they will likely resume Zosyn at least until further culture data is available and we can monitor the patient's clinical response.
[2021-09-27] MEDS: PIPERACILLIN/TAZOBACTAM 4.5 GM in DEXTROSE 5% 100 ML IV SCH ×3 (02:40→20:24)
[2021-09-27] MEDS: VANCOMYCIN HCL 1,250 MG in SODIUM CHLORIDE 0.9% 250 ML IV SCH ×2 (04:12→17:15)
[2021-09-27 07:36] LABS: BUN Creatinine Ratio 15.9 (10-20); Creatinine Clr Calc Pharmacy 102.8 ml/min; Est GFR (Non-African American) 88.9 ml/min; Hematocrit (blood only) 39.3 % (42-52); Hemoglobin 13.6 g/dL (14.0-18.0); Mean Corpuscular Hemoglobin 32.4 pg (25-34); Mean Corpuscular Hgb Conc 34.6 g/dL (32-36); Mean Corpuscular Volume 93.6 fL (80-100); Mean Platelet Volume 9.3 fL (7.4-10.4); Platelet Count 192 K/uL (130-400); Potassium 3.8 mmol/L (3.5-5.1); RDW Coefficient of Variation 13.8 % (11.5-14.5); RDW Standard Deviation 47.1 fL (36.4-46.3); White Blood Count 6.81 K/uL (4.8-10.8)
[2021-09-27 07:57] LABS: Thyroid Stimulating Hormone 5.07 uIu/ml (0.300-4.500)
--- NOTE | 2021-09-27 08:25 | Hospitalist Progress Note ---
Date of Service September 27, 2021 Assessment & Plan (1) Cellulitis: Plan: 66-year-old male without significant past medical history admitted for cellulitis and developing abscess in the right upper thigh/groin. Presents with a total of 10 days of erythema and tenderness in the right upper thigh/groin area. Evaluated by PCP office prior to admission and had packing inserted into the wound after expressing purulent material and placed on Levaquin at that time (took 2 doses)--> worsened in re-check (AND ADDITIONAL BOIL NOTED) and sent to ER for concerns worsening infection. On admission, obtained R Thigh U/S w/ 2 small developing abscesses as well as associated cellulitis no evidence for nec fasc Wound cx obtained on admit but was surface cx-- pinpoint growth, re-incubating (GNR, GPC on GS) Blood cultures NGTD General surgery on consult s/p I&D with Dr Mendoza evening 09/25 Monitor culture from OR (no epi, no wbc, no organisms on GS) -- monitor cx Wound RN consulted -- to discuss with surgery about poss vac Remains on Vanco/Zosyn for now (zosyn resumed last evening for worsening erythema but did get dose around noon, and resumed in evening) -Improvement in erythema today and continue on Vanc/ZOsyn for now and monitor culture, with GNR -Surgery to determine need for further debridement/imaging Office culture data to be faxed over today, does not have sensitivities apparently --> Monitor/tailor abx as needed Afebrile. WBC wnl Pain control, antiemetics prn (2) Soft tissue abscess: Plan: s/p I&D with Dr Mendoza. Monitor cx Abx as outlined (3) Hypokalemia: Plan: K 3.4, ordered 20meq x 1 , resolved on repeat. Mag wnl Follow BMP (4) Hyponatremia: Plan: Na 134 on admission, improved to 135 on repeat but did not get any IVF Also on tramadol which could be contributing Asymptomatic with low value, but could check TSH but given acute infection likely to be elevated and likely 2nd to medication use as this is a home medication TSH elevated, Ft4 pending but if normal suspect elevation 2nd to meds/illness and Na resolved and 138 on AM labs Metamucil added for BM --> +BM 09/27 Monitor BMP Plan: continued inpatient stay Admission and Anticipated Discharge Date Admission Date: September 26, 2021 Supervising Physician Co-Signing Physician Notes PA Supervision Note: I did not personally see or examine the patient today, but I verified all cross points of JALEN Fung's assessment and plan with the following exceptions/additions: None Subjective Patient evaluated this morning. Pain controlled. Moved his bowels. Had some sweats last night but no fever. No chest pain, shortness of breath, abdominal pain, nausea or vomiting. Erythema receding in markings and will continue current abx for now/monitor culture. Has not yet been seen by general surgery. TO have RN change packing today, will pre-medicate as was painful yesterday with wound RN. He asked if able to get results from PCP office. Discussed having navigator work on such. saw sharpener spoke with office, faxing results for culture but no sensitivities available per office. TO check back later this afternoon. Questions/concerns addressed. Review of Systems Review of Systems: All systems reviewed & are unremarkable except as noted in HPI & below Physical Exam Physical Exam: General: WN/WD male sitting up in hospital bed, NAD HEENT; head normocephalic, atraumatic, eye glasses in place, pupils equal and reactive, trachea midline without deviation Resp: CTAB, no w/c/r, on room air CV: RRR, no m/r/g, calves non-tender, cap refill wnl GI: +BS, non-tender : no caro MSK/Neuro: RLE -- UPPER THIGH/GROIN with dressing in place, serosanguineous drainage on bandage. Incision open to air (approximately 5-6cm in length with packing present), no expressible drainage. Indurated. Tender to palpation more proximal to groin. Markings noted -- erythema now receeding from second marking placed 09/26 along medial/lateral aspect of thigh as well as posterior thigh. answering questions appropriately, no facial droop/slurred speech. CN intact grossly Psych: AOX3, pleasant and cooperative Skin: see above, otherwise warm, dry Results & Data Results & Data ([facility]) Vital Signs (Past 12 Hours) Vital Signs Temp Pulse Resp BP Pulse Ox 09/27/21 07:20 36.7 C 78 16 112/74 95 09/27/21 02:51 36.9 C 70 16 127/79 94 09/26/21 22:04 36.8 C 76 16 130/78 96 Laboratory Results 09/27/21 09/27/21 09/27/21 Range/Units 06:39 06:39 06:39 WBC 6.81 (4.8-10.8) K/uL RBC 4.20 L (4.7-6.1) M/uL Hgb 13.6 L (14.0-18.0) g/dL Hct 39.3 L (42-52) % MCV 93.6 (80-100) fL MCH 32.4 (25-34) pg MCHC 34.6 (32-36) g/dL RDW Std Deviation 47.1 H (36.4-46.3) fL RDW Coeff of [place] 13.8 (11.5-14.5) % Plt Count 192 (130-400) K/uL MPV 9.3 (7.4-10.4) fL Sodium 138 (136-145) mmol/L Potassium 3.8 (3.5-5.1) mmol/L Chloride 104 (98-107) mmol/L Carbon Dioxide 27 (21-32) mmol/L Anion Gap 7 (3-11) BUN 14 (6-23) mg/dl Creatinine 0.88 (0.6-1.4) mg/dl Est Cr Clr Drug Dosing 102.8 ml/min Est GFR ( Amer) 103.0 ml/min Est GFR (Non-Af Amer) 88.9 ml/min BUN/Creatinine Ratio 15.9 (10-20) Glucose 105 H (70-99(Fasting)) mg/dl Calcium 9.0 (8.5-10.1) mg/dl TSH 5.070 H (0.300-4.500) uIu/ml Free T4 Pending PG Care Time/CCT Total # of Minutes Spent Total Time Spent with Patient: Total time spent is greater than 50% in coordination of care (as documented) at patient's floor/unit and/or counseling patient: Coding Level of Care Code 75648 Subseq Hosp Care Lvl 2 Diagnoses Cellulitis L03.90 Soft tissue abscess L02.91 Hypokalemia E87.6 Hyponatremia E87.1
[2021-09-27] MEDS: PSYLLIUM or GUAR GUM FIBER POWDER PACKET PO SCH (09:20)
--- NOTE | 2021-09-27 12:37 | Surgery Progress Note ---
Date of Service September 27, 2021 Assessment & Plan (1) Cellulitis and abscess of right lower extremity: Plan: POD#2 I&D of right thigh abscess -WBC 6, patient with stable vitals and is afebrile -Area of erythema extended some yesterday late AM, but has since appears to be receeding from last marking on R thigh. Wound itself is tender with some induration and redness with serosang drainage on packing -Wound care evaluated patient yesterday and recommending daily dressing changes with iodoform packing and optifoam gauze with f/u in wound care center upon dispo -Microbiology is still pending. Would recommend continuing on IV zosyn/Vanco until culures return for further abx guidance -Will keep a close eye on wound should he need further imaging or surgical intervention As above. Currently stating he feels much better than he did at admission. I agree with restarting the Zosyn. The erythema is dramatically decreased from the night of surgery. Continue local wound care. Admission and Anticipated Discharge Date Admission Date: September 26, 2021 Subjective Patient feeling okay. No fevers, but did say he had a bout of sweats. The area is tender when palpated upon. Physical Exam Physical Exam: awake/alert, no distress Skin: R thigh erythema improving from where it was marked yesterday. wound itself remains with some induration and is tender and red with serosang drainage on packing Results & Data ([facility]) Vital Signs (Past 12 Hours) Vital Signs Temp Pulse Resp BP Pulse Ox 09/27/21 07:20 36.7 C 78 16 112/74 95 09/27/21 02:51 36.9 C 70 16 127/79 94 PG Care Time/CCT Total # of Minutes Spent Total Time Spent with Patient: Total time spent is greater than 50% in coordination of care (as documented) at patient's floor/unit and/or counseling patient: Coding Level of Care Code None Diagnoses Cellulitis and abscess of right lower extremity L03.115; L02.415
[2021-09-27 13:09] LABS: T4 Free Thyroxine 1.34 ng/dl (0.61-1.60)
[2021-09-27] MEDS ORDERED: VANCOMYCIN TROUGH ONE (15:30)
[2021-09-27] MEDS: MoRPHine SULFATE 4 MG/ML 1 ML CARP\\VIAL IV PRN (17:15)
[2021-09-27] MEDS ORDERED: ACETAMINOPHEN 325 MG TAB PO PRN (18:34)
[2021-09-28] MEDS: PIPERACILLIN/TAZOBACTAM 4.5 GM in DEXTROSE 5% 100 ML IV SCH ×3 (04:08→20:15)
[2021-09-28] MEDS: VANCOMYCIN HCL 1,250 MG in SODIUM CHLORIDE 0.9% 250 ML IV SCH (05:13)
[2021-09-28 07:31] LABS: Basophils # (auto) 0.02 K/uL (0-0.2); Basophils % (auto) 0.3 %; Eosinophils # (auto) 0.28 K/uL (0-0.5); Eosinophils % (auto) 4.4 %; Hematocrit (blood only) 41.6 % (42-52); Hemoglobin 13.9 g/dL (14.0-18.0); Immature Granulocytes # (auto) 0.03 K/uL (0.00-0.02); Immature Granulocytes % (auto) 0.5 %; Lymphocytes # (auto) 1.34 K/uL (1.2-3.4); Mean Corpuscular Hemoglobin 31.6 pg (25-34); Mean Corpuscular Hgb Conc 33.4 g/dL (32-36); Mean Corpuscular Volume 94.5 fL (80-100); Mean Platelet Volume 9.1 fL (7.4-10.4); Monocytes # (auto) 0.68 K/uL (0.11-0.59); Monocytes % (auto) 10.7 %; Neutrophils # (auto) 4.03 K/uL (1.4-6.5); Neutrophils % (auto) 63.1 %; Platelet Count 233 K/uL (130-400); RDW Coefficient of Variation 13.6 % (11.5-14.5); RDW Standard Deviation 47.5 fL (36.4-46.3); White Blood Count 6.38 K/uL (4.8-10.8)
[2021-09-28] MEDS: PSYLLIUM or GUAR GUM FIBER POWDER PACKET PO SCH (08:08)
[2021-09-28 08:14] LABS: BUN Creatinine Ratio 14.1 (10-20); Calcium 9.1 mg/dl (8.5-10.1); Creatinine Clr Calc Pharmacy 91.4 ml/min; Est GFR (Non-African American) 78.5 ml/min; Potassium 3.8 mmol/L (3.5-5.1)
--- NOTE | 2021-09-28 08:20 | Hospitalist Progress Note ---
Date of Service September 28, 2021 Assessment & Plan (1) Cellulitis: Plan: 66-year-old male without significant past medical history admitted for cellulitis and developing abscess in the right upper thigh/groin. Presents with a total of 10 days of erythema and tenderness in the right upper thigh/groin area. Evaluated by PCP office prior to admission and had packing inserted into the wound after expressing purulent material and placed on Levaquin at that time (took 2 doses)--> worsened in re-check (AND ADDITIONAL BOIL NOTED) and sent to ER for concerns worsening infection. On admission, obtained R Thigh U/S w/ 2 small developing abscesses as well as associated cellulitis but no evidence for nec fascititis General Surgery consulted s/p I&D with Dr Mendoza evening 09/25 Continue Vanc/Zosyn Wound cx pin-point growth, re-incubating Office cx coag neg staph, no sensitivities, however given level of infection, discussed with Dr Mendoza and will await final cultures to determine abx selection however 09/28 erythema much improved Wound RN to place wound vac today BCx remain NGTD WBC wnl, afebrile pain control, antiemetics as needed -- denied much in way of pain and more comfortable today Hopeful d/c on PO abx tomorrow (2) Soft tissue abscess: Plan: s/p I&D with Dr Mendoza. Monitor cx Abx as outlined (3) Hypokalemia: Plan: Replaced/resolved (4) Hyponatremia: Plan: Na 134 on admission, improved to 135 on repeat but did not get any IVF Also on tramadol which could be contributing Asymptomatic with low value, but could check TSH but given acute infection likely to be elevated and likely 2nd to medication use as this is a home medication TSH elevated, Ft4 wnl and rec checking outpatient 4-6 wks/initiate therapy if needed Na remains stable x days Plan: continued inpatient stay, hopeful d/c tomorrow CM to follow as wound vac to be placed today Admission and Anticipated Discharge Date Admission Date: September 26, 2021 Supervising Physician Co-Signing Physician Notes PA Supervision Note: I did not personally see or examine the patient today, but I verified all cross points of JALEN Fung's assessment and plan with the following exceptions/additions: None Subjective Patient evaluated this morning, Dr Mendoza at bedside. Erythema VASTLY improved, less tender. Discussed will attempt to coordinate with wound RN to place wound vac. Cultures still pending but if resulted/can arrange wound vac could consider discharge later today. Eating/drinking/moving bowels without issue. States a lot easier getting up/moving around today. No need for any pain medication outside of when wound was packed. Anxious to go home but understands waiting for culture. Review of Systems Review of Systems: All systems reviewed & are unremarkable except as noted in HPI & below Physical Exam Physical Exam: General: WN/WD male sitting up in hospital bed, NAD HEENT; head normocephalic, atraumatic, eye glasses in place, pupils equal and reactive, trachea midline without deviation Resp: CTAB, no w/c/r, on room air CV: RRR, no m/r/g, calves non-tender, cap refill wnl GI: +BS, non-tender : no caro MSK/Neuro: RLE -- UPPER THIGH/GROIN with dressing in place, serosanguineous drainage on bandage. LESS indurated, less swelling, ERYTHEMA vastly improved and almost normal skin color outside of localized to indurated area, no fluctuance/fluid pocket appreciated, no purulent drainage able to be expressed answering questions appropriately, no facial droop/slurred speech. CN intact grossly Psych: AOX3, pleasant and cooperative Skin: see above, otherwise warm, dry Results & Data Results & Data ([facility]) Vital Signs (Past 12 Hours) Vital Signs Temp Pulse Resp BP BP Pulse Ox 09/28/21 07:23 36.5 C 63 20 110/61 93 09/27/21 22:16 36.8 C 68 18 115/63 95 Laboratory Results 09/28/21 09/28/21 09/27/21 Range/Units 06:44 06:44 15:20 WBC 6.38 (4.8-10.8) K/uL RBC 4.40 L (4.7-6.1) M/uL Hgb 13.9 L (14.0-18.0) g/dL Hct 41.6 L (42-52) % MCV 94.5 (80-100) fL MCH 31.6 (25-34) pg MCHC 33.4 (32-36) g/dL RDW Std Deviation 47.5 H (36.4-46.3) fL RDW Coeff of Clare 13.6 (11.5-14.5) % Plt Count 233 (130-400) K/uL MPV 9.1 (7.4-10.4) fL Immature Gran % (Auto) 0.5 % Neut % (Auto) 63.1 % Lymph % (Auto) 21.0 % [place] % (Auto) 10.7 % Eos % (Auto) 4.4 % Baso % (Auto) 0.3 % Neut # (Auto) 4.03 (1.4-6.5) K/uL Lymph # (Auto) 1.34 (1.2-3.4) K/uL [place] # (Auto) 0.68 H (0.11-0.59) K/uL Eos # (Auto) 0.28 (0-0.5) K/uL Baso # (Auto) 0.02 (0-0.2) K/uL Immature Gran # (Auto) 0.03 H (0.00-0.02) K/uL Sodium 139 (136-145) mmol/L Potassium 3.8 (3.5-5.1) mmol/L Chloride 105 (98-107) mmol/L Carbon Dioxide 28 (21-32) mmol/L Anion Gap 6 (3-11) BUN 14 (6-23) mg/dl Creatinine 0.99 (0.6-1.4) mg/dl Est Cr Clr Drug Dosing 91.4 ml/min Est GFR ( Amer) 91.0 ml/min Est GFR (Non-Af Amer) 78.5 ml/min BUN/Creatinine Ratio 14.1 (10-20) Glucose 106 H (70-99(Fasting)) mg/dl Calcium 9.1 (8.5-10.1) mg/dl Free T4 (0.61-1.60) ng/dl Vancomycin Trough 8.1 L (10-20) mcg/ml 09/27/21 Range/Units 06:39 WBC (4.8-10.8) K/uL RBC (4.7-6.1) M/uL Hgb (14.0-18.0) g/dL Hct (42-52) % MCV (80-100) fL MCH (25-34) pg MCHC (32-36) g/dL RDW Std Deviation (36.4-46.3) fL RDW Coeff of Clare (11.5-14.5) % Plt Count (130-400) K/uL MPV (7.4-10.4) fL Immature Gran % (Auto) % Neut % (Auto) % Lymph % (Auto) % [place] % (Auto) % Eos % (Auto) % Baso % (Auto) % Neut # (Auto) (1.4-6.5) K/uL Lymph # (Auto) (1.2-3.4) K/uL [place] # (Auto) (0.11-0.59) K/uL Eos # (Auto) (0-0.5) K/uL Baso # (Auto) (0-0.2) K/uL Immature Gran # (Auto) (0.00-0.02) K/uL Sodium (136-145) mmol/L Potassium (3.5-5.1) mmol/L Chloride (98-107) mmol/L Carbon Dioxide (21-32) mmol/L Anion Gap (3-11) BUN (6-23) mg/dl Creatinine (0.6-1.4) mg/dl Est Cr Clr Drug Dosing ml/min Est GFR ( Amer) ml/min Est GFR (Non-Af Amer) ml/min BUN/Creatinine Ratio (10-20) Glucose (70-99(Fasting)) mg/dl Calcium (8.5-10.1) mg/dl Free T4 1.34 (0.61-1.60) ng/dl Vancomycin Trough (10-20) mcg/ml PG Care Time/CCT Total # of Minutes Spent Total Time Spent with Patient: Total time spent is greater than 50% in coordination of care (as documented) at patient's floor/unit and/or counseling patient: Coding Level of Care Code 15145 Subseq Hosp Care Lvl 2 Diagnoses Cellulitis L03.90 Soft tissue abscess L02.91 Hypokalemia E87.6 Hyponatremia E87.1
--- NOTE | 2021-09-28 10:51 | Pharmacy Report ---
Pharmacy Vanc AUC Short Note - Date of Service September 28, 2021 - Assessment & Plan Assessment 66 year old M receiving Vancomycin for treatment of groin cellulitis. Patient was getting Vancomycin 1250 mg IV q12h. Trough level obtained yesterday before dose at 1600 = 8.1 mcg/ml. Today is Day #4 of antimicrobial therapy. Laboratory Tests 09/27/21 15:20 Vancomycin Trough 8.1 L Plan Vancomycin * AUC/LOIDA is the preferred PK/PD target for vancomycin * AUC guided dosing is effective and associated with decreased risk of nephrotoxicity compared to traditional trough targets * Trough level of 8.1 mcg/mL indicates an AUC/LOIDA of less than 400 mg/L.hr * Target AUC/LOIDA is 400-600 mg/L.hr * Therefore dosing increased to Vancomycin 1750 mg IV q12h starting at noon today. This is predicted to achieve target AUC/LOIDA range and may be associated with a 12% risk of nephrotoxicity. * Trough Vanco level ordered for: 09/29/21 before dose at 1200. Pharmacy will continue to follow and will adjust dose/frequency as necessary. Thank you.
[2021-09-28] MEDS: VANCOMYCIN HCL 1,750 MG in SODIUM CHLORIDE 0.9% 500 ML IV SCH (12:40)
--- NOTE | 2021-09-28 13:20 | Surgery Progress Note ---
Date of Service September 28, 2021 Assessment & Plan (1) Cellulitis and abscess of right lower extremity: Plan: I agree with the wound nurse that a wound VAC might be perfect for him. I have signed the prescription. Okay with me for discharge when okay with primary service. Will need visiting nurses for the wound VAC. Follow-up with me in 1 to 2 weeks Admission and Anticipated Discharge Date Admission Date: September 26, 2021 Subjective Patient seen. Feeling better. Would like to be discharged to home soon. Physical Exam Physical Exam: Alert. No acute distress The area of infection looks dramatically better. Almost no erythema remaining. Wound looks good with packing in place. Results & Data ([facility]) Vital Signs (Past 12 Hours) Vital Signs Temp Pulse Resp BP Pulse Ox 09/28/21 07:23 36.5 C 63 20 110/61 93 PG Care Time/CCT Total # of Minutes Spent Total Time Spent with Patient: Total time spent is greater than 50% in coordination of care (as documented) at patient's floor/unit and/or counseling patient: Coding Level of Care Code None Diagnoses Cellulitis and abscess of right lower extremity L03.115; L02.415
[2021-09-28] MEDS: MoRPHine SULFATE 4 MG/ML 1 ML CARP\\VIAL IV PRN (13:49)
[2021-09-28] MEDS: traMADol HCL 50 MG TABLET PO PRN (15:04)
[2021-09-29] MEDS: VANCOMYCIN HCL 1,750 MG in SODIUM CHLORIDE 0.9% 500 ML IV SCH (00:13)
[2021-09-29] MEDS: PIPERACILLIN/TAZOBACTAM 4.5 GM in DEXTROSE 5% 100 ML IV SCH (04:20)
--- NOTE | 2021-09-29 07:28 | Surgery Progress Note ---
Date of Service September 29, 2021 Assessment & Plan (1) History of incision and drainage: Plan: Patient currently has a wound VAC in place Plan is for visiting nurse to change the wound VAC Continuing antibiotics IV and checking his culture sensitivities Admission and Anticipated Discharge Date Admission Date: September 26, 2021 Results & Data ([facility]) Vital Signs (Past 12 Hours) Vital Signs Temp Pulse Resp BP BP Pulse Ox 09/29/21 07:16 37.3 C 61 18 113/74 96 09/28/21 21:24 36.9 C 62 16 127/74 95 PG Care Time/CCT Total # of Minutes Spent Total Time Spent with Patient: Total time spent is greater than 50% in coordination of care (as documented) at patient's floor/unit and/or counseling patient: Coding Level of Care Code None Diagnoses History of incision and drainage Z98.890
[2021-09-29] MEDS: PSYLLIUM or GUAR GUM FIBER POWDER PACKET PO SCH (09:00)
[2021-09-29] MEDS ORDERED: AMOXICILLIN/CLAVULANATE 875 MG TAB PO SCH (10:00)
[2021-09-29] MEDS ORDERED: DOXYCYCLINE HYCLATE 100 MG CAP PO SCH (10:00)
--- NOTE | 2021-09-29 10:12 | Discharge Summary ---
Date of Service September 29, 2021 Admission HPI Per Admitting Provider Chief Complaint: Cellulitis Primary Care Provider: Jacques Conway DO 66-year-old male no significant past medical history presents for about 10 days of right medial thigh swelling and pain. He reports that late last week there was a "head" on a swollen area in his upper right groin which popped on its own, after which he expressed purulent material and washed the area with soap and water. The area was improving until yesterday when he noticed that the right medial thigh was even more swollen than previous. He was seen by his PCP office who "lanced" the area and placed an unknown amount of packing within. He was placed on Levaquin by that same provider. He was seen in that office today for follow-up and the area was becoming even more red and swollen and as such he was sent to the ER for evaluation and IV antibiotics. In the ER today patient's WBC count is 11.78 with left shift, lab work otherwise normal. Right upper thigh ultrasound was performed which showed two small fluid collections consistent with developing abscesses. There was no evidence of intramuscular collections or gas collection.Allergies Admission Exam Per Admitting Provider Constitutional: WD/WN, vitals as above Eyes: PERRL, conjunctivae normal, anicteric sclerae ENMT: external ear and nose normal, oropharynx normal Neck: normal visual inspection Respiratory: normal respiratory effort, lungs clear to auscultation Cardiovascular: RRR, no murmur, no edema Gastrointestinal (Abdomen): normal bowel sounds, soft, nontender, no hepatosplenomegaly Musculoskeletal: no cyanosis or clubbing, extremities motor strength 5/5 Skin: Surgical marking pen used to saturnino erythematous area on right upper thigh/right groin. Notable for area of redness/erythema that extends from above the right medial knee to the area of the right groin. Firm area of induration without crepitus noted at the area where the right thigh meets the groin. Area is tender to palpation and on palpation some milky yellow purulent material is expressed Neurologic: AAOx3, normal speech. PERRLA, EOMI, no nystagmus. Normal visual acuity bilaterally. Bilateral UE, LE, and face without sensory or motor deficits. DTRs normal. II- XII intact bilaterally. No pronator drift. No tremor. No ataxia. Psychiatric: A+Ox3, euthymic affect Principal Diagnosis R groin Abscess, Cellulitis Discharge Exam General: WN/WD male sitting up in hospital bed, NAD HEENT; head normocephalic, atraumatic, eye glasses in place, pupils equal and reactive, trachea midline without deviation Resp: CTAB, no w/c/r, on room air CV: RRR, no m/r/g, calves non-tender, cap refill wnl GI: +BS, non-tender : no caro MSK/Neuro: R UPPER THIGH/GROIN with wound vac in place, green light on less induration, erythema significantly improved, minimally tender to palpation no evidence for nec fasciitis answering questions appropriately, no facial droop/slurred speech. CN intact grossly Psych: AOX3, pleasant and cooperative Skin: see above, otherwise warm, dry Discharge Data Allergies Allergy/AdvReac Type Severity Reaction Status Date / Time No Known Allergies Allergy Unverified 09/25/21 16:48 Consultations 09/25/21 17:20 ED Decision to Admit Stat 09/25/21 17:46 ED Decision to Admit Stat 09/25/21 17:57 Consult General Surgery Routine 09/26/21 17:18 Consult Health Information Management Routine Procedures Performed Operation Date: 09/25/21 22:00 Actual Procedures p Incision and Drainage Right Thigh Abscess(Right) - Hammad Mendoza DO Ordered Studies Vascular Ultrasound 09/25/21 15:52 US extremity non-vascular ltd HISTORY: 66 years-old Male right thigh eval for abscess patient presents with soft tissue swelling of the right thigh COMPARISON: None TECHNIQUE: Multiple real-time sonographic images of the right thigh soft tissues were obtained assessing grayscale appearance and color flow FINDINGS: Subcutaneous edema with increased echogenicity of the subcutaneous fat. Within the superficial posterior subcutaneous tissues there is a 1.1 x 0.6 x 0.7 cm hypoechoic focus containing central echogenic foci which may represent air versus packing material. Within the more anterior subcutaneous tissues there is an irregular hypoechoic subcutaneous focus measuring 1.4 x 0.4 x 1.6 cm. IMPRESSION: Cellulitis with two tiny collections within the subcutaneous tissues of the thigh as above measuring up to 1.4 cm suggestive of phlegmon/developing abscesses. No intramuscular collections are identified. ACT 112: Negative or not required by law. The above report was generated using voice recognition software. It may contain grammatical, syntax or spelling errors. Electronically signed by: Jimmy Thakkar M.D. 09/25/2021 4:55 PM Hospital Course (1) Cellulitis: 66-year-old male without significant past medical history admitted for cellulitis and developing abscess in the right upper thigh/groin. Presents with a total of 10 days of erythema and tenderness in the right upper thigh/groin area. Evaluated by PCP office prior to admission and had packing inserted into the wound after expressing purulent material and placed on Levaquin at that time (took 2 doses)--> worsened in re-check (AND ADDITIONAL BOIL NOTED) and sent to ER for concerns worsening infection. On admission, obtained R Thigh U/S: c/w w/ cellulitis with two tiny collections within the subcutaneous tissues of the thigh as above measuring up to 1.4 cm suggestive of phlegmon/developing abscesses. No intramuscular collections are identified. No evidence for nec fascitis General surgery consulted s/p I&D with Dr Mendoza 09/25 Cx from office coag negative staph. Cx from OR with Group B strep, other cx no WBC/no organisms but preliminary BCX NGTD p 48 hours On Vanc/Zosyn inpatient Wound RN consulted, had wound vac placed and sent with home health for continued change Given significant improvement in erythema, WBC normal, afebrile, and location of abscess/groin, decision to discharge on Augmentin for anaerobic coverage as well as Doxycycline to complete course (2) Soft tissue abscess: s/p I&D with Dr Mendoza. IV/PO abx as outlined I certify that this patient is under my care and that I, or a physicians cashier assistant working with me, had a face to-face encounter that meets the home health [id number] encounter requirements with this patient. The encounter with the patient was in whole, or in part, for the following medical condition, which is the primary reason for home health care (list medical condition): right groin cellulitis I certify that, based on my findings, the following services are medically necessary home health services: My clinical findings support the need for the above services because: Skilled Nsg Assessment Skilled Nsg Assessment Surgical Incision / Wound Skilled Nsg to Assess, Perform and Teach Wound Care Further, I certify that my clinical findings support that this patient is homebound (i.e. absences from home require considerable and taxing effort and are for medical reasons or samaritan services or infrequently or of short duration when for other reasons) because: Transportation Assistance/Unable to Leave Home Unassisted Certification for Home Health Services: Based on the above findings, I certify that this patient is confined to the home and needs intermittent shelter care, physical therapy and/or speech therapy or continues to need occupational therapy. The patient is under my care, and I have initiated the establishment of the plan of care. This patient will be followed by a physician who will periodically review the plan of care. (3) Hypokalemia: Replaced/resolved (4) Hyponatremia: Low normal, improved with tx and has remains stable for days Was taking tramadol CLAIM SERVICE REPRESENTATIVE for pain, which could have been contributing Checked TSH, slightly elevated but can have repeat TFT outpatient in 4-6 wks to ensure normalized/no need for supplementation No sx hypothyroidism reported such as constipation/weight gain/fatigue/pre- tibial edema/etc discharged home with wound vac, home health Total Time Total Time Spent Total Time Spent (In Minutes): 60 Discharge Plan Discharge Items Patient Disposition: Home - Home Health Services Reason For Visit: RIGHT GROIN CELLULITIS / ABSCESS Discharge Diagnosis: incision and drainage of right thigh abscess Goals: You have been hospitalized for an urgent problem which required surgery. During your stay at [facility], we have made an effort to correct the problem that brought you to the hospital while keeping you as comfortable as possible. Surgery and medications were used to bring your condition under control and your discharge instructions will include directions for any medications you should take after leaving the hospital. Please make sure to follow the advice of your surgeon regarding follow up with the surgeon and with your primary care provider. Activity: Per Instructions section Bathing Comment: may shower; no soaking in tubs/pools Exercise/Sports: Wait until after follow-up appointment Driving/Machine Use: no driving while taking any narcotics for pain Non-emergency contact: Primary Care Provider and Surgeon Call non-emergency contact if: you have any medication questions, your symptoms worsen, your pain is not controlled, your pain is worsening, you have a fever, your temperature is above 101.5, your wound has increased redness, your wound has increased drainage and your wound pain has increased Follow-up/Referrals: Hammad Mendoza DO [Surgeon] - (Please call to schedule follow up in clinic within 2 weeks) Jacques Conway DO [Primary Care Provider] - Diet: Regular Addtl Attending Provider Instructions: You have been hospitalized for a groin abscess and cellulitis. General surgery was consulted and you underwent drainage of this. Cultures from the office and OR were reviewed, and you will need broad spectrum antibiotics with Augmentin and Doxycycline 1 tablet TWICE a day for a total 14 days. You have an additional 10 days to complete the course and should take these medications WITH FOOD to prevent GI upset. Please follow up with general surgery routinely to monitor your progress. You have had a wound vac placed to help with healing and home health has been arranged to change the wound vac on Friday. Please follow up with your PCP in the next 7-10 days. Please return to the ER with any fever/chills, increased redness, uncontrolled pain, or for any other symptoms concerning for you. Take care! Addtl Computer Security Coordinator Provider Instructions: Please follow up in the wound care center upon discharge for monitoring of your wound and wound vac [address], [address], [place] [address] #[phone] Pending Studies at Discharge: No Studies:: Blood cultures NGTD Stand-Alone Forms: My [facility] [employer], Smoking Cessation Medications and DC Order Prescriptions: New doxycycline hyclate 100 mg Capsule 100 mg PO BIDM Qty: 20 RF: 0 amoxicillin-pot clavulanate 875-125 mg tablet 1 tab PO BID Qty: 20 RF: 0 Continued tramadol 50 mg tablet 50 mg PO Q8 PRN (Reason: Pain) RF: 0 diphenhydramine-acetaminophen [Tylenol PM Extra Strength] 25-500 mg Tablet 2 tab PO HS PRN (Reason: Sleep) RF: 0 Discontinued levofloxacin 500 mg tablet 500 mg PO DAILY RF: 0 Discharge Orders: Discharge Order (Routine); Ordered 09/29/21 Ordered By: Deena Carr/Other Patient Handouts: Preventing Deep Vein Thrombosis Admission Data Admit Date/Time: 09/26/21 11:07 Attending Provider: Orquidea Reza Admit Provider: Joyce Salas Primary Care Provider: Jacques Conway Other Providers: Shaun Fish ; Mauri Swift ; Hammad Mendoza ; [facility] Other Interventions: Discharge Summary Assessment (RN) Last Done: 09/29/21 12:18 Supervising Physician Co-Signing Physician Notes PA Supervision Note: I personally saw and examined the patient. I verified all cross points and agree with JALEN Fung with the following exceptions and/or additions: S-Pt feeling well, has no pain in thigh, wound vac in place. Denies CP, SOB, nausea, abd pain. Had one loose stool this AM. Afebrile. O- Vitals reviewed Gen: [AAOx3, NAD] HEENT: [anicteric sclerae, EOMI] CV: [RRR no mgr nl S1S2] Pulm: [CTAB no wcr] Abd: [+BS soft NT ND no masses or hernias] Ext: [no edema, right medial thigh with wound vac in place, mild erythema in right groin but has receded from drawn marker line in distal thigh] Skin: [no rashes, warm/dry] Neuro: [full strength throughout] A/P-66 yo male here with right thigh abscess, cultures from outpt with Coag neg STaph without sensitivities done and Group B Strep. Stable for dc with Augmentin for Strep and anaerobic coverage and doxy in case of PCN resistance for the Coag neg Staph. Coding Level of Care Code D/C DAY MANAGEMENT >30 MINS Diagnoses Cellulitis L03.90 Soft tissue abscess L02.91 Hypokalemia E87.6 Hyponatremia E87.1
[2021-09-29] MEDS ORDERED: VANCOMYCIN TROUGH ONE (11:30)
== END 2021-09-29 14:15 | disposition home health service (06) | DRG 603 ==
LOC: ED 15:32 → 3N 15:32 → SUATTDRO 17:57 → 3N 19:43